=== PATIENT | female | born 1960 | race Caucasian/White ===

== ENCOUNTER 2021-10-15 07:52 | Outpatient (RCR) | payer BC, SELFPAY ==
[2021-10-15 08:26] VITALS: BP 112/72; PULSE 86; RESP 20; TEMP 36.2; O2SAT 96
[2021-10-15] MEDS: ACETAMINOPHEN 325 MG TABLET 650 MG PO (08:33)
[2021-10-15] MEDS: diphenhydrAMINE HCl CAP 25 MG CAPSULE PO (08:33)
[2021-10-15] MEDS: FAMOTIDINE 20 MG TABLET PO (08:33)
[2021-10-15 10:01] VITALS: BP 105/61
--- NOTE | 2021-10-16 09:17 | PC.NURSE ---
Spoke to Ms Rogers and she said she is feeling better and has no other questions at this time.
== END 2021-10-15 17:00 ==
LOC: AMCINF 07:52
PROVIDERS: PCP Nurse Practitioner Adult Health; Visit Provider Internal Medicine Hematology & Oncology
DX: U07.1 COVID-19 (principal)
CPT/HCPCS: A9270; M0243; Q0243

== ENCOUNTER 2024-06-22 11:06 | Outpatient (CLI) | payer MEDICARE, BC, SELFPAY ==
[2024-06-22 19:38] LABS: Alanine Aminotransferase 14 U/L (6-35); Albumin Level 4.4 g/dL (3.5-5.1); Alkaline Phosphatase 67 U/L (38-126); Anion Gap 9 mmol/L (4-12); Aspartate Amino Transferase 59 U/L (14-36); Bilirubin,Total 0.5 mg/dL (0.2-1.3); Blood Urea Nitrogen 10 mg/dL (7-17); Calcium 9.8 mg/dL (8.4-10.2); Carbon Dioxide 31 mmol/L (22-30); Chloride 98 mmol/L (98-107); Cholesterol 243 mg/dL (0-200); Estimated Glomerular Filt Rate > 60; Glucose 96 mg/dL (65-110); HDL Direct 73 mg/dL; Potassium 4.3 mmol/L (3.4-5.0); Sodium 138 mmol/L (137-145); Triglycerides 113 mg/dL (<150)
[2024-06-22 19:49] LABS: LDL Cholesterol Direct 145 mg/dL
== END 2024-06-22 11:07 | disposition home or self-care (01) ==
LOC: ANHBWCLAB 11:12
PROVIDERS: PCP Nurse Practitioner Adult Health; Visit Provider Nurse Practitioner Adult Health
DX: Z51.81 Encounter for therapeutic drug level monitoring (principal); E66.3 Overweight; Z79.899 Other long term (current) drug therapy
CPT/HCPCS: 36415; 80053; 80061